=== PATIENT | male | born 1930 | race Caucasian/White ===

== ENCOUNTER 2017-10-17 01:18 | Emergency (ER) | payer OTHER ==
[~2017-10-17] VITALS: Ht 175.3 cm; Wt 75.9 kg
[~2017-10-17 01:18] MED LIST: CELEBREX200 MG PO; CRESTOR5 MG PO; Calan SR,Covera HS,I PO; Casodex PO; Ecotrin PO; GLIPIZIDE5 MG PO; GLUCOPHAGE1000 MG PO; Hydrodiuril,Oretic,E PO; LEVOTHYROXINE25 MCG PO; Norvasc PO; SENOKOT S,PE1 TABLET PO; Vasotec PO; Vicodin,Lortab 5/500 PO; [UNRECOGNIZED DRUG - REMARK]
[2017-10-17 01:43] LABS: HEMATOCRIT 40.4 % (38.0-50.0); MCH 26.6 PG (29.0-34.0); MCHC 32.7 G/DL (30.0-36.0); MCV 81.3 FL (86-99); MEAN PLAT.VOLUME 11.6 uM^3 (9.0-12.4); PLATELET COUNT 136 K/uL (156-360); RBC DIS.WIDTH-CV 18.5 % (11.8-14.6); RBC DIS.WIDTH-SD 54.5 % (39-53); RED BLOOD COUNT 4.97 M/uL (4.00-5.50); WHITE BLOOD COUNT 11.6 K/uL (4.1-10.2)
[2017-10-17 01:56] LABS: CHLORIDE 103 mEq/L (99-109); POTASSIUM 4.5 mEq/L (3.7-5.4); SODIUM 135 mEq/L (136-147)
[2017-10-17 02:00] LABS: ANION GAP 12 MEQ/L (2-14); GLUCOSE 372 mg/dL (70-99)
[2017-10-17 02:02] LABS: GFR ESTIMATE (CALCULATED) 44 mL/min/
[2017-10-17 02:03] LABS: UREA NITROGEN (BUN) 52 mg/dL (9-23)
[2017-10-17 03:41] LABS: POINT-OF-CARE METER ID UU13113747
[2017-10-17 05:13] VITALS: BP 166/90
== END 2017-10-17 05:16 | disposition home or self-care (01) ==
LOC: EME → EDBD 01:18 → EME 05:16
PROVIDERS: Emergency Medicine
DX: E11.65 Type 2 diabetes mellitus with hyperglycemia (principal); E86.0 Dehydration; Z79.84 Long term (current) use of oral hypoglycemic drugs; I45.10 Unspecified right bundle-branch block; I49.3 Ventricular premature depolarization; I10 Essential (primary) hypertension; Z85.46 Personal history of malignant neoplasm of prostate; Z95.4 Presence of other heart-valve replacement; Z79.82 Long term (current) use of aspirin
CPT/HCPCS: 80048; 81003; 82948; 85027; 93005; 99281; 99285; J7030